=== PATIENT | female | born 2000 | race Caucasian/White ===

== ENCOUNTER 2021-01-02 22:04 | Inpatient (IN) | payer BC, OTHER ==
[~2021-01-02] VITALS: Ht 160 cm; Wt 84.8 kg
[~2021-01-02 22:04] MED LIST: COLACE 100MG C100 MG PO; FEOSOL325 MG PO; FLEXERIL 10 MG10 MG PO; IBUPROFEN600 MG PO; KEFLEX CAP 500500 MG PO; LORTAB 5-325 M1 EACH PO; MACROBID 100 M100 MG PO; PHENERGAN 12.12.5 M1 PO; PRENATAL VITAM1 EAC8 PO
[2021-01-02 23:58] LABS: HEMOGLOBIN 11.3 gm/dl (12.3-15.3); RED BLOOD COUNT 3.74 M/UL (4.00-5.10); WHITE BLOOD COUNT 11.2 K/UL (4.5-11.0)
[2021-01-03] MEDS ORDERED: HYDROCODON-ACE1 EAC4 PO (01:06)
[2021-01-03] MEDS ORDERED: DOCUSATE SODIU100 MG PO (01:06)
[2021-01-03] MEDS ORDERED: IBUPROFEN800 MG PO (01:06)
[2021-01-03] MEDS ORDERED: PRENATABS FA T1 EACH PO (08:16)
[2021-01-04 06:38] LABS: HEMOGLOBIN 9.4 gm/dl (12.3-15.3)
== END 2021-01-04 12:15 | disposition home or self-care (01) | DRG 788 ==
LOC: GENOP 22:04 → OB 23:00
PROVIDERS: ADMIT Obstetrics & Gynecology
PROC: 10D00Z1 Extraction of Products of Conception, Low, Open Approach (ICD-10-PCS; principal; 2021-01-03 01:03)
DX: O34.211 Maternal care for low transverse scar from previous cesarean delivery (principal); N85.8 Other specified noninflammatory disorders of uterus; Z3A.36 36 weeks gestation of pregnancy; Z37.0 Single live birth; O42.919 Preterm premature rupture of membranes, unspecified as to length of time between rupture and onset of labor, unspecified trimester; O99.334 Smoking (tobacco) complicating childbirth; F17.200 Nicotine dependence, unspecified, uncomplicated; Z20.822 Contact with and (suspected) exposure to COVID-19
CPT/HCPCS: 82800; 85014; 85018; 85025; 90715; C9113; J0690; J1200; J1885; J2250; J2274; J2405; J2590; J3010; J7120; U0002

== ENCOUNTER → 2021-09-01 | Outpatient (CLI) | payer OTHER ==
[~2021-09-01] MED LIST changes: +DOCUSATE SODIU100 MG PO; +HYDROCODON-ACE1 EAC4 PO; +IBUPROFEN800 MG PO; +PRENATABS FA T1 EACH PO
== END ==
LOC: HEART 5 14:26
DX: R06.02 Shortness of breath (principal); R00.2 Palpitations
CPT/HCPCS: 93306

== ENCOUNTER → 2022-03-14 | Outpatient (CLI) | payer OTHER ==
[~2022-03-14] MED LIST changes: +CYCLOBENZAPRINE10 MG PO; +NAPROXEN500 MG PO; +SPRINTEC 28 DA1 EACH PO
[2022-03-14 10:28] LABS: HEMOGLOBIN 13.1 gm/dl (12.3-15.3); RED BLOOD COUNT 4.53 M/UL (4.00-5.10); WHITE BLOOD COUNT 8.1 K/UL (4.5-11.0)
== END ==
LOC: OPSV2 09:59
PROVIDERS: Obstetrics & Gynecology
DX: Z01.812 Encounter for preprocedural laboratory examination (principal); R10.2 Pelvic and perineal pain; Z91.040 Latex allergy status; Z91.041 Radiographic dye allergy status
CPT/HCPCS: 36415; 81001; 85025

== ENCOUNTER → 2022-03-22 | Day surgery (SDC) | payer OTHER ==
[~2022-03-22] MED LIST changes: +HYDROCODON-ACE1 EAC2 PO; +NAPROXEN250 MG PO
== END | disposition home or self-care (01) ==
LOC: OR 05:16
DX: N80.9 Endometriosis, unspecified (principal); Z79.899 Other long term (current) drug therapy; Z91.040 Latex allergy status; Z91.048 Other nonmedicinal substance allergy status
CPT/HCPCS: 84703; J1100; J1170; J1885; J2001; J2250; J2405; J2704; J2710; J2795; J3010; J7120

== ENCOUNTER → 2022-05-18 | Outpatient (CLI) | payer OTHER ==
[2022-05-18 11:53] LABS: HEMOGLOBIN 12.2 gm/dl (12.3-15.3); RED BLOOD COUNT 4.16 M/UL (4.00-5.10); WHITE BLOOD COUNT 7.5 K/UL (4.5-11.0)
== END ==
LOC: OPSV2 10:00
PROVIDERS: Obstetrics & Gynecology
DX: Z01.812 Encounter for preprocedural laboratory examination (principal); R10.2 Pelvic and perineal pain
CPT/HCPCS: 81001; 85025

== ENCOUNTER → 2022-05-24 | Day surgery (SDC) | payer OTHER ==
[~2022-05-24] MED LIST changes: +ONDANSETRON ODT8 MG PO; +ROXICODONE TAB 55 MG PO
== END | disposition home or self-care (01) ==
LOC: OR 07:30
DX: N72 Inflammatory disease of cervix uteri (principal); N80.0 Endometriosis of uterus; N32.89 Other specified disorders of bladder; N92.0 Excessive and frequent menstruation with regular cycle; J45.909 Unspecified asthma, uncomplicated
CPT/HCPCS: 84703; J0690; J1100; J1170; J1885; J2001; J2250; J2405; J2550; J2704; J2795; J3010; J7120

== ENCOUNTER 2022-05-25 22:47 | Emergency (ER) | payer OTHER ==
[2022-05-25 23:56] LABS: HEMOGLOBIN 11.4 gm/dl (12.3-15.3); RED BLOOD COUNT 3.82 M/UL (4.00-5.10); WHITE BLOOD COUNT 12.9 K/UL (4.5-11.0)
[2022-05-26 00:24] LABS: BUN/CREATININE RATIO 17 (0-10)
== END 2022-05-26 04:06 | disposition home or self-care (01) ==
LOC: ER1 22:47
PROVIDERS: Family Medicine
DX: G89.18 Other acute postprocedural pain (principal); R10.9 Unspecified abdominal pain; R10.817 Generalized abdominal tenderness; Z20.822 Contact with and (suspected) exposure to COVID-19
CPT/HCPCS: 0240U; 71045; 80053; 83690; 85025; 96361; 96374; 96375; 99284; J1885; J2405; Q9967

== ENCOUNTER 2022-07-09 18:06 | Emergency (ER) | payer OTHER ==
[2022-07-09 18:31] LABS: HEMOGLOBIN 12.3 gm/dl (12.3-15.3); RED BLOOD COUNT 4.17 M/UL (4.00-5.10); WHITE BLOOD COUNT 10.4 K/UL (4.5-11.0)
[2022-07-09 18:50] LABS: BUN/CREATININE RATIO 16 (0-10)
== END 2022-07-09 23:15 | disposition home or self-care (01) ==
LOC: ER1 18:06
PROVIDERS: Family Medicine
DX: R10.31 Right lower quadrant pain (principal); R10.813 Right lower quadrant abdominal tenderness; R10.814 Left lower quadrant abdominal tenderness
CPT/HCPCS: 80053; 81001; 83690; 85025; 93005; 99284; Q9967